=== PATIENT | male | born 1975 | race Caucasian/White ===

== ENCOUNTER 2017-08-17 16:07 | Emergency (ER) | payer BC, OTHER ==
[~2017-08-17] VITALS: Ht 170.2 cm; Wt 95.0 kg
[~2017-08-17 16:07] MED LIST: LRT5 PO; PARO1TAB29 PO
[2017-08-17 16:10] VITALS: TEMP 37.1; Ht 170.2 cm; Wt 95.0 kg
[2017-08-17 17:02] VITALS: O2SAT 96
--- NOTE | 2017-08-17 17:29 | DIAGNOSTIC IMAGING REPORT ---
CHEST ONE VIEW PORTABLE CLINICAL HISTORY: 41 years-old Male presenting with CHEST PAIN, dizziness. TECHNIQUE: Portable upright AP view of the chest was obtained. COMPARISON: None. FINDINGS: Cardiomediastinal silhouette normal. Lungs and pleural spaces clear. Osseous structures normal. Upper abdomen normal. IMPRESSION: 1. No acute cardiopulmonary disease. Electronically signed by: Ryan Moctezuma M.D. 08/17/2017 5:28 PM Dictated Date/Time: 08/17/2017 5:27 PM
[2017-08-17 17:40] LABS: BASO % 0.8 %; BASO ABS # 0.09 K/uL (0-0.2); EOS % 2.2 %; EOS ABS # 0.24 K/uL (0-0.5); HEMATOCRIT 47.9 % (42-52); HEMOGLOBIN 17.5 g/dL (14.0-18.0); IG# 0.04 K/uL (0.00-0.02); LYMPH % 25.3 %; LYMPH ABS # 2.74 K/uL (1.2-3.4); MEAN CELL VOLUME 88.4 fL (80-100); MEAN CORPUSCULAR HEMOGLOBIN 32.3 pg (25-34); MEAN CORPUSCULAR HGB CONC 36.5 g/dl (32-36); MEAN PLATELET VOLUME 8.8 fL (7.4-10.4); MONO ABS # 0.98 K/uL (0.11-0.59); NEUT % 62.3 %; NEUT ABS # 6.74 K/uL (1.4-6.5); PLATELET COUNT 275 K/uL (130-400); RED CELL DISTRIBUTION WIDTH CV 12.7 % (11.5-14.5); RED CELL DISTRIBUTION WIDTH SD 40.1 fL (36.4-46.3); WHITE BLOOD COUNT 10.83 K/uL (4.8-10.8)
[2017-08-17 17:51] LABS: INR 0.9 (0.9-1.1); PTT PATIENT 24.8 SECONDS (21.0-31.0)
[2017-08-17 18:11] LABS: ALBUMIN 4.7 gm/dl (3.4-5.0); ALT/SGPT 55 U/L (12-78); AST/SGOT 25 U/L (15-37); BLOOD UREA NITROGEN 13 mg/dl (7-18); CALCIUM 9.9 mg/dl (8.5-10.1); CARBON DIOXIDE 26 mmol/L (21-32); CREATININE 1.08 mg/dl (0.60-1.40); GLUCOSE 97 mg/dl (70-99); LIPASE 98 U/L (73-393); POTASSIUM 3.7 mmol/L (3.5-5.1); SODIUM 136 mmol/L (136-145)
[2017-08-17 18:22] LABS: ALKALINE PHOSPHATASE 77 U/L (45-117); CKMB 0.9 ng/ml (0.5-3.6); TOTAL PROTEIN 8.9 gm/dl (6.4-8.2)
[2017-08-17 21:50] VITALS: BP 155/98; PULSE 78; O2SAT 98
--- NOTE | 2017-08-18 00:21 | EMERGENCY ROOM VISIT NOTE ---
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 The patient pulled off of the road because the symptoms. The patient reports that he almost passed out. He denied any nausea, diaphoresis or pain radiating into the neck, shoulders or arms. The patient did not notice any tingling of his face, lips or upper extremities. The patient denies any prior history of chest pain, elevated cholesterol or blood pressure. He does occasionally smoke cigarettes. His father had a myocardial infarction at 38 years of age. The patient reports that he is under a lot of stress at home. At the current time, the patient denies any significant chest discomfort or tightness. Review of Systems HEENT: Denies dizziness, visual problems, hearing loss, tinnitus. Denies difficulty swallowing or oral lesions. PULMONARY: Denies cough, sputum production or hemoptysis. Otherwise see HPI. CARDIOVASCULAR: Denies recent palpitations, dyspnea on exertion, orthopnea or peripheral edema. Otherwise see HPI. GASTROINTESTINAL: Denies diarrhea, constipation, nausea, vomiting, or abdominal pain. GENITOURINARY: Denies dysuria, frequency, urgency or nocturia. NEUROLOGIC: Denies history of epilepsy, CVA, TIA or chronic headaches. MUSCULOSKELETAL: Denies history of joint tenderness/swelling. SKIN: Denies rashes or lesions. PSYCHIATRIC: Denies history of depression or mental illness. ENDOCRINE: Denies history of diabetes or thyroid disorders. Past Medical/Surgical History Medical Problems: (1) No Known Active Medical Problems Family History FH: cancer FH: coronary artery disease FH: diabetes mellitus FH: hypertension FH: lung disease Social History Smoking Status: Current Some Day Smoker Alcohol Use: occasionally Marital Status: in relationship Housing Status: lives with family, lives with significant other Occupation Status: employed Current/Historical Medications No Active Prescriptions or Reported Meds Physical Exam Vital Signs Date Time Temp Pulse Resp B/P (MAP) Pulse Ox O2 Delivery O2 Flow Rate FiO2 08/17/17 21:50 78 16 155/98 98 08/17/17 20:07 74 16 160/100 98 Room Air 08/17/17 18:37 84 152/101 94 Room Air 08/17/17 17:44 91 144/98 95 Room Air 08/17/17 17:10 98 08/17/17 17:02 96 Room Air 08/17/17 16:10 37.1 107 18 172/102 97 Room Air Physical Exam CONSTITUTIONAL: Healthy and well nourished. Alert and oriented X 3 with positive affect. Patient does not appear in any acute distress, and is not diaphoretic. HEENT: Normocephalic, atraumatic. Pupils equal, round and reactive. Ears and nares are clear. No scleral icterus or conjunctival injection/pallor. NECK: Full active range of motion without discomfort. No JVD or carotid bruits. No nuchal rigidity. RESPIRATORY: Clear to auscultation bilaterally with no wheezing, crackles, rhonchi or stridor. CARDIOVASCULAR: Regular rate and rhythm with no murmurs, rubs or gallops. GASTROINTESTINAL: Bowel sounds present in all quadrants. Abdomen is soft and nontender to palpation. MUSCULOSKELETAL: Full range of motion of all joints without discomfort. No tenderness to palpation across the anterior chest wall. INTEGUMENTARY: No rash or other significant dermatologic conditions noted. NEUROLOGIC: No focal neurologic deficits noted. Medical Decision & Procedures ER Provider Diagnostic Interpretation: My interpretation of an initial ECG shows a sinus tachycardia of [address] elevation or other conduction abnormalities. Repeat ECG almost 4 hours after the initial ECG shows a normal sinus rhythm of 85 bpm, again without any ST elevation or other conduction abnormalities or ischemia. My interpretation of a portable chest x-ray does not show any consolidations, pneumothorax or cardiac prominence. Radiologist report is as follows: CHEST ONE VIEW PORTABLE CLINICAL HISTORY: 41 years-old Male presenting with CHEST PAIN, dizziness. TECHNIQUE: Portable upright AP view of the chest was obtained. COMPARISON: None. FINDINGS: Cardiomediastinal silhouette normal. Lungs and pleural spaces clear. Osseous structures normal. Upper abdomen normal. IMPRESSION: 1. No acute cardiopulmonary disease. Laboratory Results 08/17/17 15:25 Red Blood Count 5.42, Mean Corpuscular Volume 88.4, Mean Corpuscular Hemoglobin 32.3, Mean Corpuscular Hemoglobin Concent 36.5, Mean Platelet Volume 8.8, Neutrophils (%) (Auto) 62.3, Lymphocytes (%) (Auto) 25.3, Monocytes (%) (Auto) 9.0, Eosinophils (%) (Auto) 2.2, Basophils (%) (Auto) 0.8, Neutrophils # (Auto) 6.74, Lymphocytes # (Auto) 2.74, Monocytes # (Auto) 0.98, Eosinophils # (Auto) 0.24, Basophils # (Auto) 0.09 08/17/17 15:25 Test 08/17/17 15:25 08/17/17 19:44 08/17/17 19:55 White Blood Count 10.83 K/uL (4.8-10.8) Red Blood Count 5.42 M/uL (4.7-6.1) Hemoglobin 17.5 g/dL (14.0-18.0) Hematocrit 47.9 % (42-52) Mean Corpuscular Volume 88.4 fL (80-100) Mean Corpuscular Hemoglobin 32.3 pg (25-34) Mean Corpuscular Hemoglobin Concent 36.5 g/dl (32-36) Platelet Count 275 K/uL (130-400) Mean Platelet Volume 8.8 fL (7.4-10.4) Neutrophils (%) (Auto) 62.3 % Lymphocytes (%) (Auto) 25.3 % Monocytes (%) (Auto) 9.0 % Eosinophils (%) (Auto) 2.2 % Basophils (%) (Auto) 0.8 % Neutrophils # (Auto) 6.74 K/uL (1.4-6.5) Lymphocytes # (Auto) 2.74 K/uL (1.2-3.4) Monocytes # (Auto) 0.98 K/uL (0.11-0.59) Eosinophils # (Auto) 0.24 K/uL (0-0.5) Basophils # (Auto) 0.09 K/uL (0-0.2) RDW Standard Deviation 40.1 fL (36.4-46.3) RDW Coefficient of Variation 12.7 % (11.5-14.5) Immature Granulocyte % (Auto) 0.4 % Immature Granulocyte # (Auto) 0.04 K/uL (0.00-0.02) Prothrombin Time 9.9 SECONDS (9.0-12.0) Prothromb Time International Ratio 0.9 (0.9-1.1) Activated Partial Thromboplast Time 24.8 SECONDS (21.0-31.0) Partial Thromboplastin Ratio 1.0 D-Dimer 190 ug/L FEU (0-500) Anion Gap 8.0 mmol/L (3-11) Est Creatinine Clear Calc Drug Dose 98.9 ml/min Estimated GFR () 98.3 Estimated GFR (Non- 84.8 BUN/Creatinine Ratio 12.3 (10-20) Calcium Level 9.9 mg/dl (8.5-10.1) Total Bilirubin 0.9 mg/dl (0.2-1) Direct Bilirubin 0.1 mg/dl (0-0.2) Aspartate Amino Transf (AST/SGOT) 25 U/L (15-37) Alanine Aminotransferase (ALT/SGPT) 55 U/L (12-78) Alkaline Phosphatase 77 U/L (45-117) Total Creatine Kinase 167 U/L (39-308) Creatine Kinase MB 0.9 ng/ml (0.5-3.6) Creatine Kinase MB Ratio 0.5 (0-3.0) Total Protein 8.9 gm/dl (6.4-8.2) Albumin 4.7 gm/dl (3.4-5.0) Lipase 98 U/L (73-393) Thyroid Stimulating Hormone (TSH) 1.180 uIu/ml (0.300-4.500) Bedside Troponin I < 0.030 ng/ml (0-0.045) Troponin I < 0.015 ng/ml (0-0.045) The above labs were reviewed, showing a mildly elevated white count. D-dimer is normal. Two sets of troponin, collected 4.5 hours apart, were both normal. ED Course Patient history and physical exam were performed. Nurse's notes were reviewed. Vital signs were reviewed, showing a blood pressure 172/102. Pulse rate is 107 bpm. O2 saturation is 97% on room air, and the patient is afebrile. The patient does not appear in any acute distress on exam. IV access was established, and labs were drawn. ECG and portable chest x-ray were normal. Review of labs shows a mild leukocytosis, otherwise remaining labs were normal. Repeat troponins measured 4.5 hours apart were normal. D-dimer was also normal. Upon final reevaluation, the patient denied any significant discomfort. The patient was advised that his workup today is normal, with normal labs 8 hours after symptom onset. The patient was still encouraged to follow-up with [facility] cardiology for further reevaluation. He was encouraged to take aspirin 325 mg daily. He was instructed to rest over the weekend and avoid any other strenuous activities. Patient was instructed to return to the emergency department for any worsening pain, diaphoresis, nausea or other concerning symptoms. The patient was happy with plan of care, and voiced understanding of all discharge instructions. 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 Medical Decision Patient presents to the emergency department with complaint of chest pain and shortness of breath. 8 hours after onset of pain, his serial troponins and ECGs continued to be normal. D-dimer is not elevated, therefore I do not suspect pulmonary embolus. X-rays are not suggestive of pneumothorax or pneumonia. The patient admits to being under a lot of stress. I do feel that the patient needs further cardiac rule out, and was instructed to return to the emergency department for any worsening symptoms. [place] Drug Monitoring Program Search Results: patient reviewed within database Medication Reconcilliation Current Medication List: was personally reviewed by me Blood Pressure Screening Patient's blood pressure: Elevated blood pressure Impression Primary Impression: Substernal precordial chest pain Additional Impression: Elevated blood pressure reading Departure Information Prescriptions No Active Prescriptions or Reported Meds Referrals No Doctor, Assigned (PCP) Patient Instructions My [facility] Problem Qualifiers
== END 2017-08-17 21:50 | disposition home or self-care (01) ==
LOC: C.EDB 16:09 → C.EDA 21:50
DX: R07.2 Precordial pain (principal); R03.0 Elevated blood-pressure reading, without diagnosis of hypertension; R42 Dizziness and giddiness; Z82.49 Family history of ischemic heart disease and other diseases of the circulatory system; F17.200 Nicotine dependence, unspecified, uncomplicated